=== PATIENT | female | born 2000 | race African-American/Black ===

== ENCOUNTER 2022-07-26 01:58 | Emergency (ER) | payer MEDICAID, OTHER ==
[~2022-07-26] VITALS: Ht 172.7 cm; Wt 84.0 kg
[2022-07-26 02:00] VITALS: BP 110/80
[2022-07-26] MEDS ORDERED: IBUP-2028 MT (02:48)
== END 2022-07-26 03:09 | disposition home or self-care (01) ==
LOC: ER 01:58
DX: R07.89 Other chest pain (principal); J45.909 Unspecified asthma, uncomplicated; F12.10 Cannabis abuse, uncomplicated; Z88.0 Allergy status to penicillin
CPT/HCPCS: 71045; 93005; 99283

== ENCOUNTER 2022-10-26 07:14 | Emergency (ER) | payer MEDICAID ==
[~2022-10-26] VITALS: Ht 177.8 cm; Wt 82.0 kg
[~2022-10-26 07:14] MED LIST: IBUP-2028 MT
[2022-10-26] MEDS ORDERED: IPRATROPIUM BROMIDE (0.02%) 0.5MG/2.5ML NEB HHN STA (11:04)
[2022-10-26] MEDS ORDERED: PREDNISONE 20MG TABLET PO STA (11:04)
[2022-10-26] MEDS ORDERED: ALBUTEROL (0.083%) 2.5MG/3ML NEB HHN STA (11:04)
[2022-10-26] MEDS ORDERED: P50 MT (11:15)
[2022-10-26] MEDS ORDERED: ALBU6.7H3 INH (11:15)
[2022-10-26] MEDS ORDERED: GUAI600T26 MT (11:15)
[2022-10-26 13:15] VITALS: BP 129/75
== END 2022-10-26 13:27 | disposition home or self-care (01) ==
LOC: ER 07:14
DX: J40 Bronchitis, not specified as acute or chronic (principal); F12.10 Cannabis abuse, uncomplicated; Z20.822 Contact with and (suspected) exposure to COVID-19
CPT/HCPCS: 71045; 81025; 87426; 94644; 99285; C9803; Z7610

== ENCOUNTER 2023-03-11 19:54 | Emergency (ER) | payer MEDICAID ==
[~2023-03-11] VITALS: Ht 167.6 cm; Wt 80.0 kg
[~2023-03-11 19:54] MED LIST changes: +ALBU6.7H3 INH; +GUAI600T26 MT; +P50 MT
[2023-03-11 19:55] VITALS: BP 129/90
== END 2023-03-12 04:51 | disposition left against medical advice (07) ==
LOC: ER 19:54
DX: R53.1 Weakness (principal); R51.9 Headache, unspecified
CPT/HCPCS: 99281